=== PATIENT | female | born 1955 | race Caucasian/White ===

== ENCOUNTER 2017-05-07 11:11 | Day surgery (SDC) | payer BC ==
--- NOTE | 2017-04-17 08:37 | HP ---
PREOPERATIVE HISTORY AND PHYSICAL: DATE OF SURGERY/ADMISSION: 05/07/17 DATE OF OFFICE VISIT: 04/15/17 ATTENDING SURGEON: Isis Worrell MD (dictated by MICHAEL Fisher) PROCEDURE: Right upper extremity removal of two masses. CHIEF COMPLAINT: Two masses, right upper extremity. HISTORY OF PRESENT ILLNESS: This is a 61-year-old female complaining of a lump in her right upper arm and a skin lesion of the right forearm. She would like to have them both removed. She has had an increase in pain in the right upper arm mass and increasing irritation of the skin lesion of the forearm, both have been present for several months. After discussion with and evaluation by Dr. Worrell, he has consented to proceed with removal of both the lump and the skin lesion. PAST MEDICAL HISTORY: Hypothyroidism. PAST SURGICAL HISTORY: 1. Partial thyroidectomy. 2. Hysterectomy. CURRENT MEDICATIONS: 1. Estradiol 0.5 mg daily. 2. Levothyroxine sodium 88 mcg 1 tab everyday. ALLERGIES: 1. MORPHINE, causes nausea and vomiting. 2. REGLAN, causes panic attack. 3. STATINS, causes eczema, skin reaction. 4. SUTURES, causes a skin reaction. FAMILY MEDICAL HISTORY: Multiple myeloma and heart disease. SOCIAL HISTORY: The patient is a retired nurse from [employer]. She denies tobacco use, recreational drug use and alcohol use. REVIEW OF SYSTEMS: General: Negative for fevers, chills or night sweats. No known anesthesia problems. HEENT: Negative for headache, lightheadedness or syncopal episode. Integumentary: Negative for abrasions or open wounds. Positive for skin lesion on the right forearm. Cardiothoracic Negative for hypertension, chest pain, palpitations or edema. Pulmonary: Negative for shortness of breath with exertion, chronic cough, COPD. GI: Negative for nausea, vomiting, diarrhea, constipation, or GERD. : Negative for nocturia, urinary frequency, urgency, history of UTIs or kidney problems. Musculoskeletal : Positive for current complaint. Negative for chronic or intermittent back pain or history of fractures. Neurological: Negative for paresthesias, numbness, history of seizure, stroke, or epilepsy. Endocrine: Positive for hypothyroidism, negative for diabetes. Hematologic: Negative for easy bruising , anemia, excessive bleeding or history of DVT. Infectious Disease: Negative for history of MRSA, hepatitis C, or HIV. PHYSICAL EXAMINATION GENERAL: Well-developed, well-nourished, 61-year-old female, in no acute distress. VITAL SIGNS: Height 5 feet 6 inches, weight 181 pounds, pulse rate 72, blood pressure 122/86. HEENT: Normocephalic, atraumatic. Pupils are equal, round, and reactive to light and accommodation. Extraocular movements are intact. NECK: Supple. No palpable lymph nodes. Throat is clear. CARDIOVASCULAR: Regular rate and rhythm. S1, S2. No murmurs, rubs or gallops. No edema. PULMONARY: Lungs are clear to auscultation bilaterally. No wheezes, rales or rhonchi. ABDOMEN: Positive bowel sounds. Soft, nontender. NEUROLOGIC: Alert and oriented x3. Cranial nerves II through XII are intact. Sensation is intact to light touch. Peripheral vascular 2+ radial and ulnar pulses. Negative Jesus test. MUSCULOSKELETAL: On exam of the right upper extremity, she has a bilobed mass in her right upper arm that is subcutaneous. It feels like a lipoma. It is minimally tender to palpation. She has good range of motion of her shoulder and her elbow. On her forearm at the volar radial aspect, she has a small skin lesion about 4 mm in length. It is erythematous, but there is no sign of infection. ASSESSMENT: Right forearm skin lesion and right upper arm mass. PLAN: The patient is scheduled to undergo a right upper extremity removal of [address] Worrell on 05/07/17. She will return to the office in 10 to 14 days postop for followup and suture removal. A prescription for Ultracet was e- scribed to the patient's pharmacy for postoperative management. MICHAEL FISHER [id number]/[facility] #: [id number] [facility] SYSTEMMatt
[~2017-05-07 11:11] MED LIST: Buffered Lidocaine 0.9% SYRIN* 5 ML/SYR SYRINGE INTRADERM ONE
[2017-05-07] MEDS ORDERED: Lidocaine 1% INJ* 10 MG/ML 30 ML SDV ONE (12:08)
[2017-05-07] MEDS ORDERED: Lidocaine 2% PF * 5 ML VIAL ONE (12:32)
[2017-05-07] MEDS ORDERED: Propofol* 10 MG/ML 20 ML BTL IV PUSH ONE (12:32)
[2017-05-07 13:52] VITALS: BP 129/71
--- NOTE | 2017-05-08 03:37 | OP ---
DATE OF OPERATION: 05/07/17 [facility] DATE OF : 53 SURGEON: Dr. Worrell. CLAMMER: MICHAEL Fisher. ANESTHESIOLOGIST: Neftali eTllez DO ANESTHESIA: Local MAC. PRE-OP DIAGNOSIS: Right forearm mass and right upper arm mass. POST-OP DIAGNOSIS: Right forearm mass and right upper arm mass. OPERATIVE PROCEDURE: Remove two masses from the right arm. ESTIMATED BLOOD LOSS: Zero. TOURNIQUET TIME: Approximately 10 minutes. INDICATIONS FOR PROCEDURE: Iva is a 62-year-old female who has a skin lesion in her right forearm and a painful mass in her upper arm. She presents for removal of both. DESCRIPTION OF PROCEDURE: The patient was brought to the operating room, was given a sedation anesthetic, and a local infiltration of total 10 cc of 1% of plain lidocaine over the 2 masses in her right upper extremity. The skin of right upper extremity was prepped and draped in the usual sterile fashion. The upper extremity was exsanguinated and the tourniquet elevated to 250 mmHg. An elliptical incision was made, centered around the skin lesion and the lesion was tagged distally with a black suture. There was no subcutaneous extension. The lesion was sent for pathology and then the wound was irrigated. Skin edges were reapproximated with 4- 0 nylon suture. Next, a transverse incision was made, centered over the upper arm mass, which clinically was a lipoma, dissected bluntly through the subcutaneous tissue. There were two separate sections of lipoma, and they were both removed and sent for pathology, they appeared benign, were not very adherent to the surrounding tissue. The wound was irrigated. Subcutaneous tissue was closed with 2-0 Polysorb and the skin with 4-0 nylon suture. The wounds were dressed with Xeroform, 4x4, Webril, and Vincent wrap. The patient tolerated the procedure well and was brought to the recovery room in good condition. [id number]/[facility] #: [id number] [facility]
== END 2017-05-07 13:48 | disposition home or self-care (01) ==
LOC: OREAST 11:11
PROVIDERS: ATTEND Orthopaedic Surgery
DX: D23.61 Other benign neoplasm of skin of right upper limb, including shoulder (principal); D17.21 Benign lipomatous neoplasm of skin and subcutaneous tissue of right arm; E03.9 Hypothyroidism, unspecified
CPT/HCPCS: 88304; 88305; J2001; J2704